=== PATIENT | female | born 1980 | race Caucasian/White ===

== ENCOUNTER 2016-11-04 10:22 | Emergency (ER) | payer OTHER ==
[~2016-11-04] VITALS: Ht 157.4 cm; Wt 89.8 kg
[~2016-11-04 10:22] MED LIST: AMARYL4 MG PO; ANAPROX DS550 MG PO; BACTRIM DS 8001 TA1 PO; BUPROPION HYDR300 M1 PO; CLARITIN10 MG PO; CLINDAMYCIN HC300 MG PO; COMBIVENT1 ARO IH; LANTUS100 U/ML SC; LORAZEPAM0.5 MG PO; Lopressor25 MG PO; MACROBID100 M1 PO; METFORMIN500 MG PO; MOTRIN800 MG PO; MULTI-VITAMINS1 TA1 PO; PROVENTIL0.09 MG/AC IH; SEPTRA DS 800 M1 TAB PO; SIMVASTATIN40 MG PO; VICODIN 5/500 505 MG PO; VICODIN 500 MG-1 TAB PO; VICTOZA6 MG/ML SC; ZITHROMAX Z PA250 MG PO; [UNRECOGNIZED DRUG - OTHER]
[2016-11-04] MEDS ORDERED: BACTRIM DS 8001 TA1 PO (10:36)
[2016-11-04] MEDS ORDERED: CEPHALEXIN500 M1 PO (10:36)
[2016-11-04 10:37] VITALS: BP 179/116
== END 2016-11-04 11:10 | disposition home or self-care (01) ==
LOC: ED 10:22
DX: L02.415 Cutaneous abscess of right lower limb (principal); Z98.51 Tubal ligation status; Z79.899 Other long term (current) drug therapy; Z88.5 Allergy status to narcotic agent

== ENCOUNTER 2017-11-14 01:04 | Inpatient (IN) | payer OTHER ==
[~2017-11-14] VITALS: Ht 167.6 cm; Wt 90.9 kg
[2017-11-14] VITALS (7 sets, daily range): BP systolic 133–160; BP diastolic 76–98
[~2017-11-14 01:04] MED LIST changes: +CEPHALEXIN500 M1 PO; +GLUCOPHAGE500 M1 PO; -METFORMIN500 MG PO; +MULTI-VITAMIN1 EACH PO; -MULTI-VITAMINS1 TA1 PO
[2017-11-14 01:24] LABS: HEMATOCRIT 44.2 % (37.0-47.0); HEMOGLOBIN 14.7 g/dl (12.0-16.0); MEAN CELL VOLUME 83.6 fl (81.0-99.0); MEAN CORPUSCULAR HGB 27.8 pg (27.0-31.0); MEAN CORPUSCULAR HGB CONC 33.3 g/dl (33.0-37.0); MEAN PLATELET VOLUME 11.3 fl (9.6-12.3); PLATELET COUNT AUTOMATED 412 10*3/uL (130-400); RED BLOOD COUNT 5.29 10*6/uL (4.10-5.10); WHITE BLOOD COUNT 23.2 10*3/uL (4.8-10.8)
[2017-11-14 01:44] LABS: ALBUMIN 4.3 gm/dl (3.1-4.5); ALKALINE PHOSPHATASE 158 U/L (45-117); BASOPHILS 2 % (0-1); BUN 18 mg/dl (7-24); CHLORIDE 99 mmol/L (98-107); CREATININE 1.05 mg/dL (0.55-1.02); LIPASE 92 U/L (73-393); POTASSIUM 4.2 mmol/L (3.5-5.1); SGOT/AST 7 IU/L (3-35); SGPT/ALT 18 U/L (12-78); SODIUM 134 mmol/L (136-145); TOTAL CELLS COUNTED 100 #CELLS; TOTAL PROTEIN 8.8 gm/dL (6.4-8.2)
[2017-11-14 01:45] LABS: PLATELET SUFFICIENCY HIGH (NORMAL)
[2017-11-14 01:48] LABS: BETA-HCG, QUANT < 1.0 mIU/mL (1-3)
[2017-11-14 02:15] LABS: BILIRUBIN NEGATIVE (NEGATIVE); BLOOD NEGATIVE (NEGATIVE); CLARITY CLEAR (CLEAR); COLOR YELLOW (YELLOW); GLUCOSE 3+ (NEGATIVE); KETONE 3+ (NEGATIVE); LEUKO ESTERASE NEGATIVE (NEGATIVE); NITRITE NEGATIVE (NEGATIVE); PH 5.5 (5.0-9.0); SPECIFIC GRAVITY 1.015 (1.005-1.030); UROBILINOGEN 0.2 E.U./dl (0.2-1.0)
[2017-11-14 02:28] LABS: BACTERIA 1+
[2017-11-14 05:32] LABS: BUN 15 mg/dl (7-24); CHLORIDE 103 mmol/L (98-107); CHOLESTEROL 282 mg/dL (<200); CREATININE 0.82 mg/dL (0.55-1.02); HDL CHOLESTEROL 56 mg/dl (40-60); LDL CHOLESTEROL 197 mg/dL (9-159); POTASSIUM 4.5 mmol/L (3.5-5.1); SODIUM 138 mmol/L (136-145); TRIGLYCERIDES 145 mg/dl (<150); VLDL CHOLESTEROL 29 mg/dL (6-40)
[2017-11-14 05:37] LABS: THYROID STIM HORMONE (HS) 0.609 uIU/ml (0.358-4.75)
[2017-11-14 08:01] LABS: BUN 13 mg/dl (7-24); CHLORIDE 109 mmol/L (98-107); CREATININE 0.72 mg/dL (0.55-1.02); POTASSIUM 3.9 mmol/L (3.5-5.1); SODIUM 140 mmol/L (136-145)
[2017-11-14] MEDS ORDERED: HYDROXYZINE HCL25 M1 PO (08:32)
[2017-11-14] MEDS ORDERED: KENALOG 0.1%80 GM T (08:33)
[2017-11-14] MEDS ORDERED: HUMULIN 70100 UNIT/1 SQ (08:41)
[2017-11-14] MEDS ORDERED: LIPITOR10 MG PO (08:48)
[2017-11-14] MEDS ORDERED: LOSARTAN-HCTZ1 EAC2 PO (08:50)
[2017-11-14] MEDS ORDERED: BASAG SOL SC (08:52)
[2017-11-14 10:26] LABS: VITAMIN D, 25-HYDROXY 18.5 ng/mL (30-100)
[2017-11-14 11:27] LABS: BUN 13 mg/dl (7-24); CHLORIDE 111 mmol/L (98-107); POTASSIUM 3.4 mmol/L (3.5-5.1); SODIUM 143 mmol/L (136-145)
[2017-11-14 14:28] LABS: BUN 14 mg/dl (7-24); CHLORIDE 107 mmol/L (98-107); CREATININE 0.64 mg/dL (0.55-1.02); POTASSIUM 3.5 mmol/L (3.5-5.1); SODIUM 139 mmol/L (136-145)
[2017-11-15] VITALS: BP 122/79
[2017-11-15 04:00] VITALS: BP 125/80
[2017-11-15 05:16] LABS: BASO # 0.1 10*3/uL (0.0-0.1); BASO % 0.5 % (0.0-1.0); EOS # 0.6 10*3/uL (0.0-0.4); HEMATOCRIT 40.7 % (37.0-47.0); HEMOGLOBIN 13.1 g/dl (12.0-16.0); LYMPH # 4.1 10*3/uL (1.3-4.4); MEAN CELL VOLUME 85.5 fl (81.0-99.0); MEAN CORPUSCULAR HGB 27.5 pg (27.0-31.0); MEAN CORPUSCULAR HGB CONC 32.2 g/dl (33.0-37.0); MEAN PLATELET VOLUME 10.8 fl (9.6-12.3); MONO % 7.1 % (3.0-9.0); NEUT # 8.8 10*3/uL (2.3-7.9); PLATELET COUNT AUTOMATED 373 10*3/uL (130-400); RED BLOOD COUNT 4.76 10*6/uL (4.10-5.10); RED CELL DISTRI WIDTH 12.3 % (0-14.5); WHITE BLOOD COUNT 14.6 10*3/uL (4.8-10.8)
[2017-11-15 05:31] LABS: BUN 17 mg/dl (7-24); CHLORIDE 109 mmol/L (98-107); CREATININE 0.56 mg/dL (0.55-1.02); POTASSIUM 3.2 mmol/L (3.5-5.1); SODIUM 141 mmol/L (136-145)
[2017-11-15 08:00] VITALS: BP 140/84
[2017-11-15 12:00] VITALS: BP 150/94
== END 2017-11-15 13:33 | disposition home or self-care (01) | DRG 637 ==
LOC: ED 01:04 → ICCU 03:30 → EDHOLD 03:30 → ICCU 03:53
PROVIDERS: Internal Medicine; Student in an Organized Health Care Education/Training Program
DX: E10.10 Type 1 diabetes mellitus with ketoacidosis without coma (principal); N17.0 Acute kidney failure with tubular necrosis; R65.11 Systemic inflammatory response syndrome (SIRS) of non-infectious origin with acute organ dysfunction; D68.59 Other primary thrombophilia; E87.1 Hypo-osmolality and hyponatremia; N39.0 Urinary tract infection, site not specified; E10.65 Type 1 diabetes mellitus with hyperglycemia; D72.810 Lymphocytopenia; K76.0 Fatty (change of) liver, not elsewhere classified; N20.0 Calculus of kidney; E78.5 Hyperlipidemia, unspecified; I10 Essential (primary) hypertension; E78.1 Pure hyperglyceridemia; K21.9 Gastro-esophageal reflux disease without esophagitis; Z88.5 Allergy status to narcotic agent; Z79.4 Long term (current) use of insulin; Z87.891 Personal history of nicotine dependence; Z79.899 Other long term (current) drug therapy

== ENCOUNTER 2018-11-25 18:24 | Emergency (ER) | payer OTHER ==
[~2018-11-25 18:24] MED LIST changes: +AUGMENTIN 875-875 MG PO; +BASAG SOL SC; +HUMULIN 70100 UNIT/1 SQ; +HYDROXYZINE HCL25 M1 PO; +KENALOG 0.1%80 GM T; +LIPITOR10 MG PO; +LOSARTAN-HCTZ1 EAC2 PO
[2018-11-25 18:25] VITALS: BP 177/99
[2018-11-25] MEDS ORDERED: CORTISPORIN SUS10 ML OT (18:37)
[2018-11-25] MEDS ORDERED: CIPRO500 MG PO (18:37)
== END 2018-11-25 18:53 | disposition home or self-care (01) ==
LOC: ED 18:24
DX: H60.91 Unspecified otitis externa, right ear (principal); E11.9 Type 2 diabetes mellitus without complications; Z88.5 Allergy status to narcotic agent; Z91.041 Radiographic dye allergy status; Z79.2 Long term (current) use of antibiotics; Z79.4 Long term (current) use of insulin; Z79.899 Other long term (current) drug therapy; Z87.891 Personal history of nicotine dependence

== ENCOUNTER → 2019-05-18 | Outpatient (CLI) | payer OTHER ==
[~2019-05-18] MED LIST changes: +CIPRO500 MG PO; +CORTISPORIN SUS10 ML OT
== END | disposition home or self-care (01) ==
LOC: CARD 05-17 08:30
DX: R06.02 Shortness of breath (principal)

== ENCOUNTER 2020-06-11 09:59 | Emergency (ER) | payer OTHER ==
[~2020-06-11] VITALS: Ht 157.4 cm; Wt 95.3 kg
[2020-06-11 10:08] VITALS: BP 176/105
== END 2020-06-11 12:08 | disposition home or self-care (01) ==
LOC: ED 09:59
DX: S46.911A Strain of unspecified muscle, fascia and tendon at shoulder and upper arm level, right arm, initial encounter (principal); I10 Essential (primary) hypertension; E11.9 Type 2 diabetes mellitus without complications; Z88.8 Allergy status to other drugs, medicaments and biological substances; Z79.4 Long term (current) use of insulin; W10.8XXA Fall (on) (from) other stairs and steps, initial encounter; Y93.89 Activity, other specified; Y92.89 Other specified places as the place of occurrence of the external cause; Y99.8 Other external cause status

== ENCOUNTER 2020-10-01 07:02 | Emergency (ER) | payer OTHER ==
[~2020-10-01] VITALS: Ht 157.4 cm; Wt 97.5 kg
[2020-10-01 07:11] VITALS: BP 180/96
[2020-10-01] MEDS ORDERED: Motrin,Rufen800 MG PO (09:34)
[2020-10-01] MEDS ORDERED: CYCLOBENZAPRINE10 MG PO (09:34)
== END 2020-10-01 09:37 | disposition home or self-care (01) ==
LOC: ED 07:02
DX: S16.1XXA Strain of muscle, fascia and tendon at neck level, initial encounter (principal); S29.012A Strain of muscle and tendon of back wall of thorax, initial encounter; M25.532 Pain in left wrist; Z87.891 Personal history of nicotine dependence; Z98.51 Tubal ligation status; Z88.5 Allergy status to narcotic agent; Z79.899 Other long term (current) drug therapy; V49.88XA Car occupant (driver) (passenger) injured in other specified transport accidents, initial encounter; Y93.89 Activity, other specified; Y92.413 State road as the place of occurrence of the external cause; Y99.9 Unspecified external cause status

== ENCOUNTER 2021-04-29 09:14 | Emergency (ER) | payer OTHER ==
[~2021-04-29] VITALS: Wt 95.3 kg
[~2021-04-29 09:14] MED LIST changes: +CYCLOBENZAPRINE10 MG PO; +Motrin,Rufen800 MG PO
[2021-04-29 09:24] VITALS: BP 147/87
[2021-04-29 09:57] LABS: BASO # 0.1 10*3/uL (0.0-0.1); BASO % 0.6 % (0.0-1.0); EOS # 0.4 10*3/uL (0.0-0.4); EOS % 2.9 % (1.0-4.0); HEMATOCRIT 41.2 % (37.0-47.0); LYMPH # 2.3 10*3/uL (1.3-4.4); LYMPH % 17.8 % (27.0-41.0); MEAN CELL VOLUME 83.7 fl (81.0-99.0); MEAN CORPUSCULAR HGB CONC 32.3 g/dl (33.0-37.0); MONO # 0.8 10*3/uL (0.1-1.0); NEUT # 9.4 10*3/uL (2.3-7.9); NEUT % 72.3 % (47.0-73.0); PLATELET COUNT AUTOMATED 364 10*3/uL (130-400); RED BLOOD COUNT 4.92 10*6/uL (4.10-5.10); RED CELL DISTRI WIDTH 12.7 % (0-14.5); WHITE BLOOD COUNT 12.9 10*3/uL (4.8-10.8)
[2021-04-29 10:13] LABS: ALBUMIN 3.4 gm/dl (3.1-4.5); ALKALINE PHOSPHATASE 162 U/L (45-117); BUN 11 mg/dl (7-24); CHLORIDE 103 mmol/L (98-107); CREATININE 0.66 mg/dL (0.55-1.02); SGOT/AST 6 IU/L (3-35); SGPT/ALT 19 U/L (12-78); SODIUM 134 mmol/L (136-145); TOTAL PROTEIN 7.6 gm/dL (6.4-8.2)
[2021-04-29 10:54] LABS: BILIRUBIN Negative (Negative); BLOOD 2+ (Negative); CLARITY Clear (Clear); COLOR Yellow (Yellow); GLUCOSE 3+ (Negative); KETONE 1+ (Negative); LEUKO ESTERASE Negative (Negative); NITRITE Negative (Negative); PH 5.5 (4.5-8.0); SPECIFIC GRAVITY >= 1.030 (1.001-1.030); UROBILINOGEN 0.2 E.U./dl (0.0-1.0)
[2021-04-29 11:06] LABS: URINE AMPHETAMINES < 1000 (1000ng/ml); URINE BARBITURATES < 200 (200ng/ml); URINE CANNABINOIDS (THC) < 50 (50ng/ml); URINE COCAINE < 300 (300ng/ml); URINE METHADONE < 300 (300ng/ml); URINE OPIATES < 300 (300ng/ml)
[2021-04-29 11:15] LABS: URINE BENZODIAZEPINES < 200 (200ng/ml)
[2021-04-29 11:18] LABS: URINE PHENCYCLIDINE < 25 (25ng/ml)
== END 2021-04-29 12:01 | disposition home or self-care (01) ==
LOC: ED 09:14
PROVIDERS: Student in an Organized Health Care Education/Training Program
DX: G62.9 Polyneuropathy, unspecified (principal); Z88.6 Allergy status to analgesic agent; Z79.899 Other long term (current) drug therapy; Z87.891 Personal history of nicotine dependence

== ENCOUNTER 2021-10-29 08:35 | Emergency (ER) | payer OTHER ==
[~2021-10-29] VITALS: Ht 157.4 cm; Wt 96.6 kg
[2021-10-29 09:33] LABS: BILIRUBIN Negative (Negative); BLOOD 3+ (Negative); CLARITY Turbid (Clear); COLOR Yellow (Yellow); GLUCOSE 2+ (Negative); KETONE Trace (Negative); LEUKO ESTERASE 3+ (Negative); NITRITE Negative (Negative)
[2021-10-29 09:43] LABS: HEMATOCRIT 38.6 % (37.0-47.0); MEAN CELL VOLUME 84.3 fl (81.0-99.0); MEAN CORPUSCULAR HGB 27.1 pg (27.0-31.0); MEAN CORPUSCULAR HGB CONC 32.1 g/dl (33.0-37.0); MEAN PLATELET VOLUME 10.6 fl (9.6-12.3); PLATELET COUNT AUTOMATED 664 10*3/uL (130-400); RED BLOOD COUNT 4.58 10*6/uL (4.10-5.10); RED CELL DISTRI WIDTH 12.8 % (0-14.5); WHITE BLOOD COUNT 23.1 10*3/uL (4.8-10.8)
[2021-10-29 10:04] LABS: WBC TNTC wbc/hpf (0-5)
[2021-10-29 10:05] LABS: BACTERIA 3+; EPITHELIAL CELLS 51-100; YEAST TRACE
[2021-10-29 10:08] LABS: ALKALINE PHOSPHATASE 181 U/L (45-117); BUN 13 mg/dl (7-24); CHLORIDE 100 mmol/L (98-107); CREATININE 0.69 mg/dL (0.55-1.02); LIPASE 93 U/L (73-393); POTASSIUM 3.5 mmol/L (3.5-5.1); SGOT/AST 11 IU/L (3-35); SGPT/ALT 18 U/L (12-78); SODIUM 136 mmol/L (136-145); TOTAL PROTEIN 7.8 gm/dL (6.4-8.2)
[2021-10-29 10:09] LABS: BETA-HCG, QUANT < 1.0 mIU/mL (1-3)
[2021-10-29 10:19] LABS: MANUAL DIFF REFLEX YES
[2021-10-29 10:22] LABS: PLATELET SUFFICIENCY HIGH (NORMAL); TOTAL CELLS COUNTED 100 #CELLS; TOXIC GRANULATION SLIGHT
[2021-10-29 14:18] VITALS: BP 143/97
== END 2021-10-29 15:29 | disposition short-term general hospital (02) ==
LOC: ED 08:35
PROVIDERS: Emergency Medicine
DX: A41.9 Sepsis, unspecified organism (principal); N20.1 Calculus of ureter; R11.2 Nausea with vomiting, unspecified; Z87.891 Personal history of nicotine dependence; Z98.51 Tubal ligation status; Z79.899 Other long term (current) drug therapy; Z79.4 Long term (current) use of insulin; Z88.5 Allergy status to narcotic agent

== ENCOUNTER → 2021-12-01 | Outpatient (CLI) | payer OTHER | LOC: RAD 09:16 | PROVIDERS: ATTEND Urology | DX: N20.2 Calculus of kidney with calculus of ureter (principal); T83.192A Other mechanical complication of indwelling ureteral stent, initial encounter; X58.XXXA Exposure to other specified factors, initial encounter ==

== ENCOUNTER → 2021-12-30 | Outpatient (CLI) | payer OTHER ==
[2021-12-30 11:18] LABS: BASO # 0.1 10*3/uL (0.0-0.1); BASO % 0.4 % (0.0-1.0); EOS # 0.4 10*3/uL (0.0-0.4); EOS % 2.6 % (1.0-4.0); LYMPH # 3.5 10*3/uL (1.3-4.4); MEAN CELL VOLUME 83.3 fl (81.0-99.0); MEAN CORPUSCULAR HGB 26.1 pg (27.0-31.0); MEAN CORPUSCULAR HGB CONC 31.3 g/dl (33.0-37.0); MEAN PLATELET VOLUME 9.9 fl (9.6-12.3); MONO # 0.7 10*3/uL (0.1-1.0); MONO % 5.3 % (3.0-9.0); NEUT # 9.3 10*3/uL (2.3-7.9); NEUT % 66.3 % (47.0-73.0); PLATELET COUNT AUTOMATED 611 10*3/uL (130-400); RED BLOOD COUNT 4.68 10*6/uL (4.10-5.10); RED CELL DISTRI WIDTH 13.8 % (0-14.5)
[2021-12-30 11:19] LABS: RETICULOCYTE % 0.92 % (0.50-2.50)
[2021-12-30 11:30] LABS: BILIRUBIN Negative (Negative); BLOOD Negative (Negative); CLARITY Cloudy (Clear); COLOR Yellow (Yellow); GLUCOSE Negative (Negative); KETONE Negative (Negative); LEUKO ESTERASE 2+ (Negative); NITRITE Negative (Negative); PH 5.5 (4.5-8.0); SPECIFIC GRAVITY 1.015 (1.001-1.030); UROBILINOGEN 0.2 E.U./dl (0.0-1.0)
[2021-12-30 11:40] LABS: ALKALINE PHOSPHATASE 113 U/L (45-117); BUN 9 mg/dl (7-24); CHLORIDE 103 mmol/L (98-107); CREATININE 0.62 mg/dL (0.55-1.02); POTASSIUM 3.5 mmol/L (3.5-5.1); SGOT/AST 9 IU/L (3-35); SGPT/ALT 18 U/L (12-78); SODIUM 139 mmol/L (136-145); T3 UPTAKE 33 % (31-39); THYROXINE (T4) TOTAL 7.7 ug/dl (4.8-13.9); TOTAL PROTEIN 8.3 gm/dL (6.4-8.2)
[2021-12-30 11:49] LABS: THYROID STIM HORMONE (HS) 0.899 uIU/ml (0.358-4.75)
[2021-12-30 11:51] LABS: FERRITIN 62.4 ng/mL (10.0-291.0); VITAMIN D, 25-HYDROXY 18.9 ng/mL (30-100)
[2021-12-30 11:56] LABS: BACTERIA 2+; CALCIUM OXALATE CRYSTALS 1+; EPITHELIAL CELLS TNTC; RBC 0-2 rbc/hpf (0-2); WBC 16-20 wbc/hpf (0-5)
== END | disposition home or self-care (01) ==
LOC: LAB 10:48
PROVIDERS: Family Medicine; ATTEND Urology
DX: E78.5 Hyperlipidemia, unspecified (principal); E55.9 Vitamin D deficiency, unspecified; R79.89 Other specified abnormal findings of blood chemistry; R53.83 Other fatigue; R74.8 Abnormal levels of other serum enzymes; E83.50 Unspecified disorder of calcium metabolism; R31.9 Hematuria, unspecified

== ENCOUNTER → 2022-07-15 | Outpatient (CLI) | payer OTHER ==
[2022-07-15 10:03] LABS: BILIRUBIN Negative (Negative); BLOOD Negative (Negative); CLARITY Cloudy (Clear); COLOR Yellow (Yellow); GLUCOSE 3+ (Negative); KETONE Negative (Negative); LEUKO ESTERASE 1+ (Negative); NITRITE Negative (Negative); UROBILINOGEN 0.2 E.U./dl (0.0-1.0)
[2022-07-15 10:07] LABS: BASO # 0.1 10*3/uL (0.0-0.1); BASO % 0.6 % (0.0-1.0); EOS # 0.7 10*3/uL (0.0-0.4); EOS % 4.9 % (1.0-4.0); HEMATOCRIT 40.5 % (37.0-47.0); LYMPH # 3.2 10*3/uL (1.3-4.4); LYMPH % 22.6 % (27.0-41.0); MEAN CELL VOLUME 84.4 fl (81.0-99.0); MEAN CORPUSCULAR HGB 27.1 pg (27.0-31.0); MEAN CORPUSCULAR HGB CONC 32.1 g/dl (33.0-37.0); MEAN PLATELET VOLUME 11.4 fl (9.6-12.3); MONO # 1.1 10*3/uL (0.1-1.0); MONO % 7.8 % (3.0-9.0); NEUT % 63.7 % (47.0-73.0); PLATELET COUNT AUTOMATED 426 10*3/uL (130-400); RED CELL DISTRI WIDTH 13.1 % (0-14.5); RETICULOCYTE % 0.92 % (0.50-2.50); WHITE BLOOD COUNT 14.2 10*3/uL (4.8-10.8)
[2022-07-15 10:21] LABS: ALKALINE PHOSPHATASE 126 U/L (46-116); BUN 10 mg/dl (9-23); CHLORIDE 104 mmol/L (98-107); CHOLESTEROL 150 mg/dL (<200); GAMMA GLUTAMYL TRANSPEPTIDASE 19 U/L (0-73); LDL CHOLESTEROL 67 mg/dL (9-159); POTASSIUM 3.8 mmol/L (3.4-5.1); SGPT/ALT 10 U/L (10-49); T3 UPTAKE 21.6 % (22.4-36.7); THYROID STIM HORMONE (HS) 1.108 uIU/ml (0.550-4.780); THYROXINE (T4) TOTAL 7.4 ug/dl (4.5-10.9); TOTAL PROTEIN 7.8 gm/dL (6.0-8.0); TRIGLYCERIDES 174 mg/dl (<150)
[2022-07-15 10:22] LABS: VITAMIN D, 25-HYDROXY 31.4 ng/mL (30-100)
[2022-07-15 10:23] LABS: BACTERIA 2+; EPITHELIAL CELLS TNTC; YEAST 2+
== END | disposition home or self-care (01) ==
LOC: LAB 08:39
PROVIDERS: ATTEND Family Medicine
DX: E78.5 Hyperlipidemia, unspecified (principal); E55.9 Vitamin D deficiency, unspecified; R79.89 Other specified abnormal findings of blood chemistry; R53.83 Other fatigue; R74.8 Abnormal levels of other serum enzymes

== ENCOUNTER → 2023-03-06 | Outpatient (CLI) | payer OTHER ==
[2023-03-06 07:28] LABS: BILIRUBIN Negative (Negative); BLOOD Negative (Negative); CLARITY Clear (Clear); COLOR Yellow (Yellow); GLUCOSE 3+ (Negative); KETONE Negative (Negative); LEUKO ESTERASE Trace (Negative); NITRITE Negative (Negative); PH 5.5 (4.5-8.0); SPECIFIC GRAVITY >= 1.030 (1.001-1.030); UROBILINOGEN 0.2 E.U./dl (0.0-1.0)
[2023-03-06 07:29] LABS: BASO # 0.1 10*3/uL (0.0-0.1); BASO % 0.5 % (0.0-1.0); EOS # 0.5 10*3/uL (0.0-0.4); EOS % 3.6 % (1.0-4.0); LYMPH # 2.6 10*3/uL (1.3-4.4); LYMPH % 20.6 % (27.0-41.0); MEAN CELL VOLUME 83.2 fl (81.0-99.0); MEAN CORPUSCULAR HGB 27.8 pg (27.0-31.0); MEAN CORPUSCULAR HGB CONC 33.4 g/dl (33.0-37.0); MONO % 7.5 % (3.0-9.0); NEUT # 8.5 10*3/uL (2.3-7.9); NEUT % 67.3 % (47.0-73.0); PLATELET COUNT AUTOMATED 377 10*3/uL (130-400); RED BLOOD COUNT 4.93 10*6/uL (4.10-5.10); RED CELL DISTRI WIDTH 12.7 % (0-14.5); WHITE BLOOD COUNT 12.6 10*3/uL (4.8-10.8)
[2023-03-06 08:39] LABS: BACTERIA 2+
[2023-03-06 08:40] LABS: RBC 0-2 rbc/hpf (0-2); WBC 16-20 wbc/hpf (0-5)
[2023-03-06 08:41] LABS: ALKALINE PHOSPHATASE 139 U/L (46-116); BUN 12 mg/dl (9-23); CHLORIDE 101 mmol/L (98-107); CHOLESTEROL 239 mg/dL (<200); GAMMA GLUTAMYL TRANSPEPTIDASE 21 U/L (0-73); LDL CHOLESTEROL 130 mg/dL (9-159); POTASSIUM 4.5 mmol/L (3.4-5.1); SGPT/ALT 8 U/L (5-49); T3 UPTAKE 25.2 % (22.4-36.7); THYROXINE (T4) TOTAL 7.5 ug/dl (4.5-10.9); TOTAL PROTEIN 7.1 gm/dL (6.0-8.0); TRIGLYCERIDES 278 mg/dl (<150)
[2023-03-06 10:15] LABS: VITAMIN D, 25-HYDROXY 24.6 ng/mL (30-100)
== END | disposition home or self-care (01) ==
LOC: LAB 07:03
PROVIDERS: ATTEND Family Medicine
DX: M85.872 Other specified disorders of bone density and structure, left ankle and foot (principal); M19.072 Primary osteoarthritis, left ankle and foot; E78.5 Hyperlipidemia, unspecified; E55.9 Vitamin D deficiency, unspecified; R79.89 Other specified abnormal findings of blood chemistry; R53.83 Other fatigue; R74.8 Abnormal levels of other serum enzymes

== ENCOUNTER → 2023-06-08 | Outpatient (CLI) | payer OTHER ==
[2023-06-08 09:04] LABS: BASO # 0.1 10*3/uL (0.0-0.1); BASO % 0.4 % (0.0-1.0); EOS # 0.6 10*3/uL (0.0-0.4); EOS % 3.1 % (1.0-4.0); HEMATOCRIT 39.5 % (37.0-47.0); LYMPH % 15.9 % (27.0-41.0); MEAN CELL VOLUME 81.6 fl (81.0-99.0); MEAN CORPUSCULAR HGB 25.4 pg (27.0-31.0); MEAN CORPUSCULAR HGB CONC 31.1 g/dl (33.0-37.0); MEAN PLATELET VOLUME 10.1 fl (9.6-12.3); MONO # 1.1 10*3/uL (0.1-1.0); MONO % 5.7 % (3.0-9.0); NEUT # 13.8 10*3/uL (2.3-7.9); NEUT % 74.5 % (47.0-73.0); PLATELET COUNT AUTOMATED 449 10*3/uL (130-400); RED BLOOD COUNT 4.84 10*6/uL (4.10-5.10); RED CELL DISTRI WIDTH 13.5 % (0-14.5); RETICULOCYTE % 0.96 % (0.50-2.50); WHITE BLOOD COUNT 18.5 10*3/uL (4.8-10.8)
[2023-06-08 09:09] LABS: BILIRUBIN Negative (Negative); BLOOD Negative (Negative); CLARITY Cloudy (Clear); COLOR Yellow (Yellow); GLUCOSE Negative (Negative); KETONE Trace (Negative); LEUKO ESTERASE 3+ (Negative); NITRITE Negative (Negative); PH 6.5 (4.5-8.0); SPECIFIC GRAVITY 1.015 (1.001-1.030); UROBILINOGEN 0.2 E.U./dl (0.0-1.0)
[2023-06-08 09:19] LABS: BACTERIA 2+; EPITHELIAL CELLS TNTC; WBC 31-40 wbc/hpf (0-5)
[2023-06-08 09:48] LABS: ALKALINE PHOSPHATASE 112 U/L (46-116); BUN 10 mg/dl (9-23); CHLORIDE 104 mmol/L (98-107); CHOLESTEROL 176 mg/dL (<200); GAMMA GLUTAMYL TRANSPEPTIDASE 17 U/L (0-73); LDL CHOLESTEROL 98 mg/dL (9-159); POTASSIUM 3.9 mmol/L (3.4-5.1); SGPT/ALT 17 U/L (5-49); T3 UPTAKE 26.4 % (22.4-36.7); TOTAL PROTEIN 7.7 gm/dL (6.0-8.0); TRIGLYCERIDES 142 mg/dl (<150)
[2023-06-08 09:51] LABS: VITAMIN D, 25-HYDROXY 21.4 ng/mL (30-100)
== END | disposition home or self-care (01) ==
LOC: LAB 08:47
PROVIDERS: ATTEND Family Medicine
DX: E10.9 Type 1 diabetes mellitus without complications (principal); R79.89 Other specified abnormal findings of blood chemistry; R53.83 Other fatigue; E78.5 Hyperlipidemia, unspecified; E55.9 Vitamin D deficiency, unspecified

== ENCOUNTER 2023-06-17 07:08 | Emergency (ER) | payer OTHER ==
[2023-06-17 07:26] VITALS: BP 145/69
[2023-06-17] MEDS ORDERED: HUMULIN 70/30 703 M1 SQ ×2 (07:28→07:29)
[2023-06-17] MEDS ORDERED: JARDIANCE25 MG PO (07:29)
[2023-06-17 07:34] LABS: BASO # 0.1 10*3/uL (0.0-0.1); BASO % 0.5 % (0.0-1.0); EOS # 0.4 10*3/uL (0.0-0.4); EOS % 2.2 % (1.0-4.0); HEMATOCRIT 39.5 % (37.0-47.0); LYMPH # 2.3 10*3/uL (1.3-4.4); LYMPH % 12.9 % (27.0-41.0); MEAN CORPUSCULAR HGB 25.1 pg (27.0-31.0); MEAN CORPUSCULAR HGB CONC 30.6 g/dl (33.0-37.0); MEAN PLATELET VOLUME 10.1 fl (9.6-12.3); MONO # 0.8 10*3/uL (0.1-1.0); MONO % 4.3 % (3.0-9.0); NEUT # 14.2 10*3/uL (2.3-7.9); NEUT % 79.7 % (47.0-73.0); PLATELET COUNT AUTOMATED 548 10*3/uL (130-400); RED BLOOD COUNT 4.82 10*6/uL (4.10-5.10); RED CELL DISTRI WIDTH 13.3 % (0-14.5); WHITE BLOOD COUNT 17.8 10*3/uL (4.8-10.8)
[2023-06-17 07:49] LABS: ACT PARTIAL THROMBO TIME 30.1 SECONDS (20.0-32.1)
[2023-06-17 07:51] LABS: ALKALINE PHOSPHATASE 116 U/L (46-116); BUN 8 mg/dl (9-23); CHLORIDE 102 mmol/L (98-107); LIPASE 55 U/L (12-53); POTASSIUM 3.8 mmol/L (3.4-5.1); SGPT/ALT 10 U/L (5-49); TOTAL PROTEIN 7.6 gm/dL (6.0-8.0)
[2023-06-17] MEDS ORDERED: SODIUM CHLORIDE 0.9% 1,000 ML IV ONE (08:15)
[2023-06-17 08:18] LABS: BILIRUBIN Negative (Negative); BLOOD 2+ (Negative); CLARITY Clear (Clear); COLOR Yellow (Yellow); GLUCOSE 2+ (Negative); KETONE Trace (Negative); LEUKO ESTERASE 3+ (Negative); NITRITE Negative (Negative); UROBILINOGEN 0.2 E.U./dl (0.0-1.0)
[2023-06-17 08:32] LABS: BACTERIA 2+; WBC 16-20 wbc/hpf (0-5)
[2023-06-17] MEDS ORDERED: CIPRO500 MG PO (09:01)
== END 2023-06-17 09:33 | disposition home or self-care (01) ==
LOC: ED 07:08
PROVIDERS: Emergency Medicine; Internal Medicine
DX: N39.0 Urinary tract infection, site not specified (principal); E11.649 Type 2 diabetes mellitus with hypoglycemia without coma; R11.10 Vomiting, unspecified; R10.2 Pelvic and perineal pain; I10 Essential (primary) hypertension; E11.9 Type 2 diabetes mellitus without complications; Z88.5 Allergy status to narcotic agent; Z91.041 Radiographic dye allergy status; Z98.51 Tubal ligation status; Z87.891 Personal history of nicotine dependence

== ENCOUNTER → 2023-11-08 | Outpatient (CLI) | payer OTHER ==
[~2023-11-08] MED LIST changes: +HUMULIN 70/30 703 M1 SQ; +JARDIANCE25 MG PO
[2023-11-08 09:33] LABS: BASO # 0.1 10*3/uL (0.0-0.1); BASO % 0.6 % (0.0-1.0); EOS # 0.9 10*3/uL (0.0-0.4); EOS % 5.2 % (1.0-4.0); HEMATOCRIT 35.4 % (37.0-47.0); LYMPH # 3.2 10*3/uL (1.3-4.4); LYMPH % 19.7 % (27.0-41.0); MEAN CORPUSCULAR HGB 25.2 pg (27.0-31.0); MEAN CORPUSCULAR HGB CONC 31.9 g/dl (33.0-37.0); MEAN PLATELET VOLUME 10.5 fl (9.6-12.3); MONO % 6.1 % (3.0-9.0); NEUT % 67.9 % (47.0-73.0); PLATELET COUNT AUTOMATED 527 10*3/uL (130-400); RED BLOOD COUNT 4.48 10*6/uL (4.10-5.10); RED CELL DISTRI WIDTH 15.4 % (0-14.5); WHITE BLOOD COUNT 16.2 10*3/uL (4.8-10.8)
[2023-11-08 09:58] LABS: ALKALINE PHOSPHATASE 105 U/L (46-116); BUN 11 mg/dl (9-23); CHLORIDE 105 mmol/L (98-107); CHOLESTEROL 133 mg/dL (<200); GAMMA GLUTAMYL TRANSPEPTIDASE 14 U/L (0-73); LDL CHOLESTEROL 60 mg/dL (9-159); POTASSIUM 3.8 mmol/L (3.4-5.1); SGPT/ALT 20 U/L (5-49); T3 UPTAKE 29.5 % (22.4-36.7); TOTAL PROTEIN 7.5 gm/dL (6.0-8.0); TRIGLYCERIDES 121 mg/dl (<150)
[2023-11-08 10:07] LABS: VITAMIN D, 25-HYDROXY 27.9 ng/mL (30-100)
[2023-11-08 10:33] LABS: BILIRUBIN Negative (Negative); BLOOD 2+ (Negative); CLARITY Turbid (Clear); COLOR Yellow (Yellow); GLUCOSE Negative (Negative); KETONE Trace (Negative); LEUKO ESTERASE Trace (Negative); NITRITE Negative (Negative); PH 5.5 (4.5-8.0)
[2023-11-08 10:58] LABS: URINE CREATININE RANDOM 186.43 mg/dL
[2023-11-08 11:20] LABS: BACTERIA 3+; CALCIUM OXALATE CRYSTALS 2+; EPITHELIAL CELLS 21-30
== END | disposition home or self-care (01) ==
LOC: LAB 09:02
PROVIDERS: ATTEND Family Medicine
DX: E11.9 Type 2 diabetes mellitus without complications (principal); E55.9 Vitamin D deficiency, unspecified; R53.83 Other fatigue; E78.5 Hyperlipidemia, unspecified; R79.89 Other specified abnormal findings of blood chemistry

== ENCOUNTER 2024-05-03 21:33 | Emergency (ER) | payer OTHER ==
[~2024-05-03] VITALS: Ht 154.9 cm; Wt 99.8 kg
[2024-05-03] MEDS ORDERED: ALBUTEROL 8 GM INHALER INH ONE (21:50)
[2024-05-03] MEDS ORDERED: ASPIRIN, CHEWABLE 81 MG TAB PO ONE ×3 (21:50→22:35)
[2024-05-03 21:57] LABS: BASO # 0.1 10*3/uL (0.0-0.1); BASO % 0.5 % (0.0-1.0); EOS # 0.5 10*3/uL (0.0-0.4); EOS % 2.5 % (1.0-4.0); HEMATOCRIT 34.7 % (37.0-47.0); MEAN CELL VOLUME 82.8 fl (81.0-99.0); MEAN CORPUSCULAR HGB CONC 31.4 g/dl (33.0-37.0); MEAN PLATELET VOLUME 10.3 fl (9.6-12.3); MONO % 5.1 % (3.0-9.0); NEUT # 15.4 10*3/uL (2.3-7.9); NEUT % 80.9 % (47.0-73.0); PLATELET COUNT AUTOMATED 505 10*3/uL (130-400); RED BLOOD COUNT 4.19 10*6/uL (4.10-5.10); RED CELL DISTRI WIDTH 13.6 % (0-14.5)
[2024-05-03] MEDS ORDERED: Albuterol Sulfate 2.5 MG/3 ML VIAL NEB ONE (22:05)
[2024-05-03 22:07] LABS: ACT PARTIAL THROMBO TIME 26.1 SECONDS (20.0-32.1)
[2024-05-03 22:17] LABS: ALKALINE PHOSPHATASE 99 U/L (46-116); BUN 15 mg/dl (9-23); CHLORIDE 104 mmol/L (98-107); POTASSIUM 3.8 mmol/L (3.4-5.1); SGPT/ALT 13 U/L (5-49); TOTAL PROTEIN 7.5 gm/dL (6.0-8.0)
[2024-05-03] MEDS ORDERED: HEPARIN SODIUM 5,000 UNIT/ML VIAL IV ONE (22:40)
[2024-05-03] MEDS ORDERED: TICAGRELOR 90 MG TABLET PO ONE (23:00)
[2024-05-03 23:08] VITALS: BP 147/85
== END 2024-05-03 23:34 | disposition short-term general hospital (02) ==
LOC: ED 21:33
PROVIDERS: Nurse Practitioner
DX: I21.09 ST elevation (STEMI) myocardial infarction involving other coronary artery of anterior wall (principal); Z20.822 Contact with and (suspected) exposure to COVID-19; E11.9 Type 2 diabetes mellitus without complications; K21.9 Gastro-esophageal reflux disease without esophagitis; Z88.5 Allergy status to narcotic agent; Z91.041 Radiographic dye allergy status; Z79.4 Long term (current) use of insulin; Z79.84 Long term (current) use of oral hypoglycemic drugs; Z98.51 Tubal ligation status; Z87.891 Personal history of nicotine dependence

== ENCOUNTER → 2024-08-03 | Outpatient (CLI) | payer OTHER ==
[2024-08-03 15:46] LABS: BASO # 0.1 10*3/uL (0.0-0.1); BASO % 0.6 % (0.0-1.0); EOS # 0.6 10*3/uL (0.0-0.4); EOS % 3.7 % (1.0-4.0); HEMATOCRIT 33.7 % (37.0-47.0); MEAN CORPUSCULAR HGB 25.5 pg (27.0-31.0); MEAN CORPUSCULAR HGB CONC 31.5 g/dl (33.0-37.0); MEAN PLATELET VOLUME 10.5 fl (9.6-12.3); MONO # 1.3 10*3/uL (0.1-1.0); MONO % 8.1 % (3.0-9.0); NEUT # 10.2 10*3/uL (2.3-7.9); NEUT % 64.4 % (47.0-73.0); PLATELET COUNT AUTOMATED 498 10*3/uL (130-400); RED BLOOD COUNT 4.16 10*6/uL (4.10-5.10); RED CELL DISTRI WIDTH 14.3 % (0-14.5); RETICULOCYTE % 1.09 % (0.50-2.50); WHITE BLOOD COUNT 15.9 10*3/uL (4.8-10.8)
[2024-08-03 15:47] LABS: BILIRUBIN Negative (Negative); BLOOD Negative (Negative); CLARITY Clear (Clear); COLOR Yellow (Yellow); GLUCOSE 2+ (Negative); KETONE Negative (Negative); LEUKO ESTERASE 2+ (Negative); NITRITE Negative (Negative); PH 6.5 (4.5-8.0); SPECIFIC GRAVITY <= 1.005 (1.001-1.030); UROBILINOGEN 0.2 E.U./dl (0.0-1.0)
[2024-08-03 16:41] LABS: ALKALINE PHOSPHATASE 154 U/L (46-116); BUN 18 mg/dl (9-23); CHLORIDE 104 mmol/L (98-107); CHOLESTEROL 114 mg/dL (<200); GAMMA GLUTAMYL TRANSPEPTIDASE 15 U/L (0-73); LDL CHOLESTEROL 37 mg/dL (9-159); POTASSIUM 3.9 mmol/L (3.4-5.1); SGPT/ALT 18 U/L (5-49); THYROXINE (T4) TOTAL 7.2 ug/dl (4.5-10.9); TOTAL PROTEIN 7.7 gm/dL (6.0-8.0); TRIGLYCERIDES 159 mg/dl (<150)
[2024-08-03 16:42] LABS: VITAMIN D, 25-HYDROXY 33.4 ng/mL (30-100)
[2024-08-03 17:26] LABS: BACTERIA 1+; RBC 0-2 rbc/hpf (0-2)
== END | disposition home or self-care (01) ==
LOC: LAB 15:15
PROVIDERS: ATTEND Family Medicine
DX: R79.89 Other specified abnormal findings of blood chemistry (principal); E78.5 Hyperlipidemia, unspecified; E55.9 Vitamin D deficiency, unspecified

== ENCOUNTER 2025-01-10 14:06 | Emergency (ER) | payer OTHER ==
[~2025-01-10] VITALS: Ht 165.1 cm; Wt 86.2 kg
[2025-01-10 14:12] VITALS: BP 129/91
[2025-01-10] MEDS ORDERED: OXYCODONE HCL (IR) 5 MG TAB PO ONE (14:25)
[2025-01-10 14:41] LABS: BASO # 0.1 10*3/uL (0.0-0.1); BASO % 0.6 % (0.0-1.0); EOS # 0.2 10*3/uL (0.0-0.4); EOS % 1.3 % (1.0-4.0); MEAN CELL VOLUME 78.1 fl (81.0-99.0); MEAN CORPUSCULAR HGB 24.5 pg (27.0-31.0); MEAN PLATELET VOLUME 10.8 fl (9.6-12.3); MONO # 0.8 10*3/uL (0.1-1.0); MONO % 4.8 % (3.0-9.0); NEUT # 13.7 10*3/uL (2.3-7.9); NEUT % 81.5 % (47.0-73.0); NUCLEATED RED BLOOD CELL 0.0 % (0.0-0.0); NUCLEATED RED BLOOD CELL 0.0 10*3/uL (0.0-0.0); PLATELET COUNT AUTOMATED 393 10*3/uL (130-400); RED CELL DISTRI WIDTH 18.6 % (0-14.5)
[2025-01-10] MEDS ORDERED: ANUSOL HC30 GM PO (15:13)
== END 2025-01-10 16:38 | disposition home or self-care (01) ==
LOC: ED 14:06
PROVIDERS: Emergency Medicine
DX: K64.8 Other hemorrhoids (principal); I10 Essential (primary) hypertension; E11.9 Type 2 diabetes mellitus without complications; Z87.891 Personal history of nicotine dependence; Z98.51 Tubal ligation status; Z88.5 Allergy status to narcotic agent; Z88.8 Allergy status to other drugs, medicaments and biological substances

== ENCOUNTER → 2025-02-13 | Outpatient (CLI) | payer OTHER ==
[~2025-02-13] MED LIST changes: +ANUSOL HC30 GM PO
[2025-02-13 10:45] LABS: BASO # 0.1 10*3/uL (0.0-0.1); BASO % 0.7 % (0.0-1.0); EOS # 0.7 10*3/uL (0.0-0.4); EOS % 4.9 % (1.0-4.0); MEAN CELL VOLUME 83.5 fl (81.0-99.0); MEAN CORPUSCULAR HGB 26.1 pg (27.0-31.0); MEAN PLATELET VOLUME 10.5 fl (9.6-12.3); MONO # 1.0 10*3/uL (0.1-1.0); MONO % 7.0 % (3.0-9.0); NEUT # 8.7 10*3/uL (2.3-7.9); NEUT % 63.5 % (47.0-73.0); NUCLEATED RED BLOOD CELL 0.0 % (0.0-0.0); NUCLEATED RED BLOOD CELL 0.0 10*3/uL (0.0-0.0); PLATELET COUNT AUTOMATED 441 10*3/uL (130-400); RED CELL DISTRI WIDTH 15.3 % (0-14.5); RETICULOCYTE % 1.70 % (0.50-2.50)
[2025-02-13 11:05] LABS: BILIRUBIN Negative (Negative); BLOOD Negative (Negative); CLARITY Clear (Clear); COLOR Yellow (Yellow); KETONE Negative (Negative); LEUKO ESTERASE 1+ (Negative); NITRITE Negative (Negative); PH 7.0 (4.5-8.0); SPECIFIC GRAVITY >= 1.030 (1.001-1.030); UROBILINOGEN 0.2 E.U./dl (0.0-1.0)
[2025-02-13 11:20] LABS: VITAMIN D, 25-HYDROXY 42.5 ng/mL (30-100)
[2025-02-13 11:22] LABS: BUN 14 mg/dl (9-23); GAMMA GLUTAMYL TRANSFERASE 33 U/L (0-38); LDL CHOLESTEROL 36 mg/dL (9-159); SGPT/ALT 25 U/L (5-49)
[2025-02-13 12:27] LABS: BACTERIA 1+; WBC TNTC wbc/hpf (0-5); YEAST TRACE
== END | disposition home or self-care (01) ==
LOC: LAB 09:57
PROVIDERS: ATTEND Family Medicine
DX: R79.89 Other specified abnormal findings of blood chemistry (principal); E78.5 Hyperlipidemia, unspecified; R53.83 Other fatigue; E55.9 Vitamin D deficiency, unspecified

== ENCOUNTER 2025-03-31 17:54 | Emergency (ER) | payer OTHER ==
[~2025-03-31] VITALS: Ht 162.6 cm; Wt 121.6 kg
[2025-03-31 18:08] VITALS: BP 103/73
[2025-03-31] MEDS ORDERED: SODIUM CHLORIDE 0.9% 1,000 ML IV ONE ×2 (18:20→20:00)
[2025-03-31 18:31] LABS: MEAN CELL VOLUME 84.2 fl (81.0-99.0); MEAN CORPUSCULAR HGB 27.0 pg (27.0-31.0); MEAN PLATELET VOLUME 10.7 fl (9.6-12.3); NUCLEATED RED BLOOD CELL 0.0 % (0.0-0.0); NUCLEATED RED BLOOD CELL 0.0 10*3/uL (0.0-0.0); PLATELET COUNT AUTOMATED 433 10*3/uL (130-400); RED CELL DISTRI WIDTH 12.5 % (0-14.5)
[2025-03-31 18:32] LABS: MANUAL DIFF REFLEX YES
[2025-03-31 18:56] LABS: PLATELET SUFFICIENCY HIGH (NORMAL); VACUOLATION OF NEUTROPHILS SLIGHT
[2025-03-31 19:04] LABS: BUN 20.0 mg/dl (9-23)
[2025-03-31 19:09] LABS: BILIRUBIN Negative (Negative); BLOOD 2+ (Negative); CLARITY Clear (Clear); COLOR Yellow (Yellow); KETONE 1+ (Negative); LEUKO ESTERASE Negative (Negative); NITRITE Negative (Negative); PH 5.5 (4.5-8.0); SPECIFIC GRAVITY >= 1.030 (1.001-1.030); UROBILINOGEN 0.2 E.U./dl (0.0-1.0)
[2025-03-31 19:17] LABS: BACTERIA 2+; WBC 0-2 wbc/hpf (0-5); YEAST TRACE
[2025-03-31] MEDS ORDERED: INSULIN REGULAR, HUMAN 1 UNIT/0.01 ML IV ONE (19:35)
[2025-03-31 22:31] LABS: BUN 18 mg/dl (9-23)
[2025-03-31] MEDS ORDERED: MACROBID100 M1 PO (22:58)
== END 2025-03-31 22:55 | disposition home or self-care (01) ==
LOC: ED 17:54
PROVIDERS: Nurse Practitioner Family
DX: E11.65 Type 2 diabetes mellitus with hyperglycemia (principal); E11.40 Type 2 diabetes mellitus with diabetic neuropathy, unspecified; N30.01 Acute cystitis with hematuria; E86.0 Dehydration; I10 Essential (primary) hypertension; D72.829 Elevated white blood cell count, unspecified; Z87.891 Personal history of nicotine dependence; Z98.51 Tubal ligation status; Z88.5 Allergy status to narcotic agent; Z88.8 Allergy status to other drugs, medicaments and biological substances